=== PATIENT | male | born 1955 | race Caucasian/White ===

== ENCOUNTER 2016-12-17 15:23 | Emergency (ER) | payer OTHER ==
[2016-12-17] MEDS ORDERED: cefTRIAXone 1 GM Vial IM ONE (17:01)
[2016-12-17] MEDS ORDERED: HYDROmorphone 1 MG/ML Syringe IM ONE (17:01)
--- NOTE | 2016-12-17 17:10 | EDM.PDOC ---
ED HPI GENERAL MEDICAL PROBLEM - General Chief Complaint: Skin Complaint Stated Complaint: INFECTION LOWER JAW Time Seen by Provider: 12/17/16 16:45 Source of Information: Reports: Patient, Family History Limitations: Reports: No Limitations - History of Present Illness INITIAL COMMENTS - FREE TEXT/NARRATIVE: 61-year-od male who has had some progressive swelling and jaw pain over the past 5 days, had numerous dental extractions done 2 weeks ago. No fevers or chills but he appears to be having an infection developing in the jaw. He was seen by the dentist in [place] today, referred to the [place] physician who recommended he could directly to [place] and be seen. The patient however is changes mind and wants to go tomorrow so came into our emergency room for dose of antibiotics. He is fairly uncomfortable but afebrile. Onset: Gradual (Over the past 5 days) Location: Reports: Neck Lower Face Pain Score (Numeric/FACES): 8 - Related Data Allergies Allergy/AdvReac Type Severity Reaction Status Date / Time etodolac Allergy Itching Verified 12/17/16 16:07 naproxen [From Naprosyn] Allergy Itching Verified 12/17/16 16:07 valdecoxib [From Bextra] Allergy Itching Verified 12/17/16 16:07 Home Meds: Home Meds Aspirin [Ecotrin] 81 mg PO DAILY 12/17/16 [History] Cyclobenzaprine [Flexeril] 10 mg PO TID 12/17/16 [History] DULoxetine [Cymbalta] 120 mg PO DAILY 12/17/16 [History] Meloxicam [Mobic] 7.5 mg PO DAILY 12/17/16 [History] Ranitidine [Zantac] 150 mg PO BID 12/17/16 [History] Simvastatin [Zocor] 10 mg PO BEDTIME 12/17/16 [History] diphenhydrAMINE [Benadryl] 25 mg PO Q6H PRN 12/17/16 [History] metFORMIN [Glucophage] 1,000 mg PO BID 12/17/16 [History] Past Medical History HEENT History: Reports: Impaired Vision Cardiovascular History: Reports: High Cholesterol Gastrointestinal History: Reports: GERD Musculoskeletal History: Reports: Arthritis, Back Pain, Chronic Neurological History: Reports: Neuropathy, Diabetic Psychiatric History: Reports: Anxiety Endocrine/Metabolic History: Reports: Diabetes, Type II, Obesity/BMI 30+ - Past Surgical History HEENT Surgical History: Reports: Oral Surgery GI Surgical History: Reports: Colonoscopy, EGD, Hernia Repair/Other Neurological Surgical History: Reports: Lumbar Spine Musculoskeletal Surgical History: Reports: Carpal Tunnel, Hip Replacement, Other (See Below) Other Musculoskeletal Surgeries/Procedures:: back surgery Social & Family History - Tobacco Use Smoking Status *Q: Never Smoker - Caffeine Use Caffeine Use: Reports: Coffee - Recreational Drug Use Recreational Drug Use: No ED ROS GENERAL - Review of Systems Review Of Systems: See Below Constitutional: Reports: Malaise. Denies: Fever, Chills HEENT: Reports: Throat Pain Respiratory: Denies: No Symptoms, Shortness of Breath Cardiovascular: Denies: Chest Pain GI/Abdominal: Denies: Vomiting Skin: Reports: Other (Chronic itching and excoriations) Neurological: Denies: Headache ED EXAM, SKIN/RASH Exam: See Below Exam Limited By: No Limitations General Appearance: Alert, No Apparent Distress (Patient is not distressed but is uncomfortable) Throat/Mouth: Other (There appears to be some fluctuance in the floor of the mouth distal to the tongue which extends underneath the jaw. It is not reddened or warm but it is tender to palpation.) Neck: No: Lymphadenopathy (R), Lymphadenopathy (L) Respiratory/Chest: No Respiratory Distress Neurological: Alert, Oriented Skin: Warm, Dry Course - Vital Signs Last Recorded V/S: Last Vital Signs Temp 98.4 F 12/17/16 16:04 Pulse 104 H 12/17/16 16:04 Resp 18 12/17/16 16:04 BP 120/88 12/17/16 16:04 Pulse Ox 97 12/17/16 16:04 - Orders/Labs/Meds Meds: Medications Discontinued Medications Generic Name Dose Route Start Last Admin Trade Name Freq PRN Reason Stop Dose Admin Ceftriaxone Sodium 1 gm 12/17/16 17:01 12/17/16 17:14 Rocephin IM 12/17/16 17:02 1 gm ONETIME ONE Administration Hydromorphone HCl 1 mg 12/17/16 17:01 12/17/16 17:14 Dilaudid IM 12/17/16 17:02 1 mg ONETIME ONE Administration Lidocaine HCl Confirm 12/17/16 17:08 12/17/16 17:12 Xylocaine-Mpf 1% Administered 12/17/16 17:09 Not Given Dose 5 ml .ROUTE .STK-MED ONE Lidocaine HCl 2 ml 12/17/16 17:11 12/17/16 17:14 Xylocaine-Mpf 1% INJECT 12/17/16 17:12 2 ml ONETIME ONE Administration - Re-Assessments/Exams Free Text/Narrative Re-Assessment/Exam: 12/17/16 17:08 Patient was given 1 g of Rocephin IM, and 1 mg of Dilaudid IM. I strongly encouraged him to follow the advice of his [facility] and go to [facility] , I think he needs a maxillofacial or ENT physician to take a look at this, he may need an I&D. Departure - Departure Time of Disposition: 17:38 Disposition: DC/Tfer to Other 70 Condition: Fair Clinical Impression: Héctor's angina - Discharge Information Instructions: Dental Abscess, [id number] Referrals: PCP,None [Primary Care Provider] - Forms: ED Department Discharge Care Plan Goals: I would strongly encouraged you to go to [place] to be evaluated this evening.
[2016-12-17] MEDS ORDERED: Lidocaine 1% PF 2 ML SDV INJECT ONE (17:11)
== END 2016-12-17 17:38 | disposition other institution (70) ==
LOC: JP.ED 15:23
DX: K12.2 Cellulitis and abscess of mouth (principal); K21.9 Gastro-esophageal reflux disease without esophagitis; E78.00 Pure hypercholesterolemia, unspecified; E11.9 Type 2 diabetes mellitus without complications; E66.9 Obesity, unspecified; Z88.8 Allergy status to other drugs, medicaments and biological substances; Z79.82 Long term (current) use of aspirin
CPT/HCPCS: 96372; 96374; 99284; J0696; J1170

== ENCOUNTER 2017-04-29 08:00 | Day surgery (SDC) | payer OTHER ==
[~2017-04-29 08:00] MED LIST: Lactated Ringers 1,000 ML IV SCH
[2017-04-29] MEDS ORDERED: fentaNYL 100 MCG/2 ML SDV ONE (09:48)
[2017-04-29] MEDS ORDERED: Propofol 200 MG/20 ML SDV ONE (09:48)
[2017-04-29] MEDS ORDERED: Midazolam 1 MG/ML 2 ML SDV ONE (09:49)
--- NOTE | 2017-04-30 08:11 | OR ---
DATE OF PROCEDURE: 04/29/2017 PREOPERATIVE DIAGNOSIS: Colon cancer screening. POSTOPERATIVE DIAGNOSES: 1. Diverticulosis. 2. Two small colon polyps. PROCEDURE PERFORMED: Colonoscopy to the cecum with biopsy resection of small colon polyps at 25 cm from anal verge, in rectum. SURGEON: Renato Hernandez MD DOG [employer]OD D[employer] MIXER: Melquiades Smith MS-3. ANESTHESIA: IV anesthesia with monitored anesthesia care. INDICATION: This 61-year-old white male is referred for a colonoscopy for colon cancer screening. He says his last colonoscopic exam was done 11 years ago. I counseled him for the procedure including risks and alternatives, and he gave his informed consent to proceed. DESCRIPTION OF PROCEDURE: The patient was placed in the left lateral decubitus position. IV anesthesia was administered by the Anesthesia Service. Time-out was held. A rectal exam was performed, which was unremarkable. The flexible video Olympus colonoscope was introduced through his anus, up his rectum, and out his colon, all the way to the cecum. En route, we saw a few scattered left-sided diverticula. There was no bleeding or inflammation associated with them. Once the cecum was reached, the scope was slowly withdrawn, examining the mucosa throughout. No additional mucosal abnormalities were noted until we reached about 25 cm from the anal verge. Here, we saw a small polyp, which was removed with several bites of biopsy forceps. The scope was brought back in the rectum, where another small polyp was seen, which was removed with the biopsy forceps. The scope was retroflexed with the distal rectum appearing unremarkable, save for some hemorrhoidal tissue. The scope was straightened and removed. He tolerated the procedure well. Renato Hernandez MD /[id number]
== END 2017-04-29 11:35 | disposition home or self-care (01) ==
LOC: JP.SDS 08:00
PROVIDERS: ATTEND Surgery
DX: Z12.11 Encounter for screening for malignant neoplasm of colon (principal); D12.6 Benign neoplasm of colon, unspecified; D12.8 Benign neoplasm of rectum; K57.30 Diverticulosis of large intestine without perforation or abscess without bleeding; K21.9 Gastro-esophageal reflux disease without esophagitis; E11.9 Type 2 diabetes mellitus without complications; G47.33 Obstructive sleep apnea (adult) (pediatric); F32.9 Major depressive disorder, single episode, unspecified; Z88.8 Allergy status to other drugs, medicaments and biological substances
CPT/HCPCS: 45380; J2250; J2704; J3010; J7120; 88305

== ENCOUNTER 2020-05-31 07:07 | Day surgery (SDC) | payer OTHER ==
[~2020-05-31 07:07] MED LIST changes: -Lactated Ringers 1,000 ML IV SCH; +Midazolam 1 MG/ML 2 ML SDV ONE; +Propofol 200 MG/20 ML SDV ONE; +fentaNYL 100 MCG/2 ML SDV ONE
[2020-05-31] MEDS ORDERED: Dextrose 5%-Lactated Ringers 1,000 ML IV SCH (07:30)
[2020-05-31] MEDS ORDERED: Propofol 200 MG/20 ML SDV ONE (08:24)
--- NOTE | 2020-06-11 11:13 | OR ---
DATE OF PROCEDURE: 05/31/2020 SURGEON: Rocael Olivares MD PREOPERATIVE DIAGNOSIS: History of colon polyps. POSTOPERATIVE DIAGNOSIS: Current colonoscopy showing no recurrent colon polyps. OPERATIVE PROCEDURE: Flexible colonoscopy. ANESTHESIA: IV sedation. INDICATION FOR PROCEDURE: A 64-year-old male presenting for followup colonoscopy. He was noted to have adenomatous colon polyps on a colonoscopy in 2018. Plan is to proceed with a colonoscopy with biopsies and/or polypectomy as indicated. Potential risks including bleeding and perforation were discussed, and the patient wishes to proceed. DETAILS OF PROCEDURE: The patient was taken to the operating room and placed in a left lateral decubitus position. IV sedation was administered, after which the initial digital rectal exam was performed and was unremarkable. Colonoscope was then passed to the level of the rectum with retroflexion revealing uncomplicated hemorrhoidal columns. Scope was eventually passed to the level of the cecum. The prep was fair with only a small amount of liquid stool being present. Vast majority of the mucosal surfaces were adequately visualized. To that level, no current pathology was identified, specifically there were no diverticula, no areas of colitis, and no polyps or other signs of neoplasia. Scope was then withdrawn, and the above findings reconfirmed, and the procedure then concluded. There were no evident complications. Recommendation would be to repeat the colonoscopy in 5 years given the personal history of colon polyps. Rocael Olivares MD /[id number]
== END 2020-05-31 09:49 | disposition home or self-care (01) ==
LOC: JP.SDS 07:07
PROVIDERS: ATTEND Surgery
DX: Z12.11 Encounter for screening for malignant neoplasm of colon (principal); K64.9 Unspecified hemorrhoids; E78.5 Hyperlipidemia, unspecified; E11.9 Type 2 diabetes mellitus without complications; Z86.010 Personal history of colon polyps; Z88.8 Allergy status to other drugs, medicaments and biological substances; Z01.812 Encounter for preprocedural laboratory examination; Z20.822 Contact with and (suspected) exposure to COVID-19
CPT/HCPCS: 45378; J2250; J2704; J3010; J7121

== ENCOUNTER 2023-02-27 13:36 | Emergency (ER) | payer OTHER | END 2023-02-27 16:05 | disposition home or self-care (01) | LOC: JP.ED 13:36 | DX: M25.562 Pain in left knee (principal); K21.9 Gastro-esophageal reflux disease without esophagitis; E11.40 Type 2 diabetes mellitus with diabetic neuropathy, unspecified; Z88.6 Allergy status to analgesic agent; Z88.8 Allergy status to other drugs, medicaments and biological substances | CPT/HCPCS: 73610-LT; 99283 ==

== ENCOUNTER 2023-07-14 07:59 | Emergency (ER) | payer OTHER | END 2023-07-14 09:02 | disposition home or self-care (01) | LOC: JP.ED 07:59 | DX: R21 Rash and other nonspecific skin eruption (principal); K21.9 Gastro-esophageal reflux disease without esophagitis; E78.00 Pure hypercholesterolemia, unspecified; E66.9 Obesity, unspecified; Z87.891 Personal history of nicotine dependence; Z79.899 Other long term (current) drug therapy; Z88.8 Allergy status to other drugs, medicaments and biological substances; Z68.29 Body mass index [BMI] 29.0-29.9, adult | CPT/HCPCS: 99282; 99283 ==

== ENCOUNTER 2023-07-16 13:55 | Emergency (ER) | payer OTHER ==
[2023-07-16] MEDS: Ketorolac 15 MG/ML SDV IM ONE (15:23)
[2023-07-16] MEDS: HYDROmorphone 0.5 MG/0.5 ML Syringe IM ONE (15:24)
== END 2023-07-16 15:30 | disposition home or self-care (01) ==
LOC: JP.ED 13:55
DX: M54.50 Low back pain, unspecified (principal); K21.9 Gastro-esophageal reflux disease without esophagitis; E11.40 Type 2 diabetes mellitus with diabetic neuropathy, unspecified; Z88.0 Allergy status to penicillin; Z88.8 Allergy status to other drugs, medicaments and biological substances
CPT/HCPCS: 96372; 99283; J1170; J1885

== ENCOUNTER 2023-07-19 18:58 | Emergency (ER) | payer OTHER | END 2023-07-19 19:40 | disposition left against medical advice (07) | LOC: JP.ED 18:58 | DX: Z53.21 Procedure and treatment not carried out due to patient leaving prior to being seen by health care provider (principal) ==

== ENCOUNTER 2024-08-21 15:45 | Emergency (ER) | payer OTHER | END 2024-08-21 16:46 | disposition home or self-care (01) | LOC: JP.ED 15:45 | DX: L29.9 Pruritus, unspecified (principal); K21.9 Gastro-esophageal reflux disease without esophagitis; E78.00 Pure hypercholesterolemia, unspecified; E66.9 Obesity, unspecified; E11.40 Type 2 diabetes mellitus with diabetic neuropathy, unspecified; Z79.899 Other long term (current) drug therapy; Z88.8 Allergy status to other drugs, medicaments and biological substances; Z68.30 Body mass index [BMI] 30.0-30.9, adult | CPT/HCPCS: 99282 ==

== ENCOUNTER 2025-01-26 13:18 | Emergency (ER) | payer OTHER ==
[2025-01-26 14:34] LABS: BASOPHILS ABSOLUTE AUTO 0.09 K/uL (0.00-0.10); BASOPHILS PERCENT AUTO 1.0 % (0.1-1.3); EOSINOPHILS ABSOLUTE AUTO 0.23 K/uL (0.00-0.40); EOSINOPHILS PERCENT AUTO 2.6 % (0.0-5.4); IMMATURE GRAN PERCENT AUTO 0.2 % (0.0-0.7); LYMPHOCYTES ABSOLUTE AUTO 3.03 K/uL (0.8-3.3); LYMPHOCYTES PERCENT AUTO 34.7 % (11.4-47.7); MONOCYTES ABSOLUTE AUTO 0.53 K/uL (0.20-0.90); MONOCYTES PERCENT AUTO 6.1 % (3.3-12.6); NEUTROPHILS ABSOLUTE AUTO 4.84 K/uL (1.0-7.6); NEUTROPHILS PERCENT AUTO 55.4 % (40.0-78.1); PLATELET COUNT,PLT 312 K/uL (130-375); RED BLOOD CELL COUNT 5.31 M/uL (4.14-5.76); WHITE BLOOD CELL COUNT,WBC 8.7 K/uL (3.2-11.0)
[2025-01-26 14:35] LABS: IMMATURE GRAN ABSOLUTE AUTO 0.02 K/uL (0.00-0.23)
[2025-01-26 15:01] LABS: A/G RATIO 1.0 (1.2-2.2); ALANINE AMINOTRANSFERASE,ALT 23 U/L (12-78); ASPARTATE AMNIOTRANSFERASE,AST 20 U/L (15-37); BILIRUBIN TOTAL 0.4 mg/dL (0.2-1.0); BLOOD UREA NITROGEN,BUN 10 mg/dL (7-18); CARBON DIOXIDE,CO2 28 mmol/L (21-32); CHLORIDE,CL 104 mmol/L (100-108); CREATININE 0.8 mg/dL (0.8-1.3); EST CRCL DRUG DOSING (CG) 91.25 mL/min; ESTIMATED GFR 96 mL/min (>60); GLUCOSE RANDOM 98 mg/dL (74-106); POTASSIUM,K 4.3 mmol/L (3.6-5.2); PRO B-TYPE NATRIUR PEPT,BNPPRO 179 pg/mL (5-125); PROTEIN TOTAL,TP 7.5 g/dL (6.4-8.2); SODIUM,NA 141 mmol/L (140-148)
== END 2025-01-26 15:34 | disposition home or self-care (01) ==
LOC: JP.ED 13:18
DX: L03.115 Cellulitis of right lower limb (principal); R60.0 Localized edema; E66.9 Obesity, unspecified; Z88.8 Allergy status to other drugs, medicaments and biological substances; Z79.899 Other long term (current) drug therapy; Z68.30 Body mass index [BMI] 30.0-30.9, adult
CPT/HCPCS: 36415; 73590; 80053; 83605; 83880; 85025; 86140; 99283; A9270